=== PATIENT | female | born 1975 | race Caucasian/White ===

== ENCOUNTER 2016-09-25 02:54 | Emergency (ER) | payer OTHER ==
[~2016-09-25] VITALS: Ht 160 cm; Wt 77.1 kg
[2016-09-25] MEDS ORDERED: HYDR-2666 PO (04:22)
--- NOTE | 2016-09-25 04:23 | PHYS DOC ---
Past Medical History Past Medical History: UTI Additional Past Medical Histor: TRICH Past Surgical History: No Surgical History Alcohol Use: Sober Additional Information: PATIENT QUIT DRINKING ALOCHOL 24 HOURS AGO Drug Use: Methamphetamine Adult General Chief Complaint Chief Complaint: MECHANICAL FALL HPI HPI 40-year-old female presenting the emergency department with left lower rib pain after falling. Her pain is sharp mild intermittent happened about a day ago. She denies any head trauma neck pain or any other injuries. Review of Systems Review of Systems ROS negative for fevers chills abdominal pain nausea vomiting. Negative for loss of consciousness headache head pain head trauma or neck pain. All other review of systems is negative unless otherwise noted in history of present illness. Allergies Allergies Allergies Coded Allergies Type Severity Reaction Last Updated Verified No Known Drug Allergies 09/25/16 No Physical Exam Physical Exam Constitutional: Well developed, well nourished, no acute distress, non-toxic appearance. HENT: Normocephalic, atraumatic, bilateral external ears normal, oropharynx moist, no oral exudates, nose normal. [] Eyes: PERRLA, EOMI, conjunctiva normal, no discharge. Neck: Normal range of motion, no tenderness, supple, no stridor. Cardiovascular:Heart rate regular rhythm, no murmur . Mild pain of the right Lungs & Thorax: Bilateral breath sounds clear to auscultation [] Abdomen: Bowel sounds normal, soft, no tenderness, no masses, no pulsatile masses. Skin: Warm, dry, no erythema, no rash. [] Back: No tenderness, no CVA tenderness. Extremities: No tenderness, no cyanosis, no clubbing, ROM intact, no edema. Neurologic: Alert and oriented X 3, normal motor function, normal sensory function, no focal deficits noted. Psychologic: Affect normal, judgement normal, mood normal. [] Current Patient Data Vital Signs Vital Signs Date Time Temp Pulse Resp B/P Pulse Ox O2 Delivery O2 Flow Rate FiO2 09/25/16 04:35 89 137/82 98 Room Air 09/25/16 03:23 97.8 18 97.8 Lab Values Laboratory Tests Test 09/25/16 03:35 Urine Test Negative (NEG) EKG EKG [] Radiology/Procedures Radiology/Procedures Chest x-ray shows no evidence of rib fracture. No pneumothorax present. Course & Med Decision Making Course & Med Decision Making Pertinent Labs and Imaging studies reviewed. (See chart for details) 32-year-old female with left rib pain. Vital signs showed mild hypertension otherwise unremarkable. Physical exam unremarkable. Chest x-ray unremarkable. Patient was discharged home with oral pain medication to follow-up with her primary care physician. [place] Disclaimer Dragon Disclaimer This electronic medical record was generated, in whole or in part, using a voice recognition dictation system. Departure Departure Impression: Primary Impression: Rib contusion Disposition: HOME, SELF-CARE Condition: STABLE Referrals: NO PCP (PCP) MOON MARTÍNEZ MD Patient Instructions: Rib Contusion Additional Instructions: Thank you for allowing us to participate in your care today. Followup with your primary care physician in 3 days if your symptoms do not improve. If you do not have a primary care provider you can ask for a list of our primary care providers. Return to the emergency department you have any new or concerning findings. This should be evaluated by the primary care physician and any necessary consulting services for continued management within a few days after discharge. Return to emergency room if you have any new or concerning symptoms including but not limited to fever, chills, nausea, vomiting, intractable pain, any new rashes, chest pain, shortness of air, uncontrolled bleeding, difficulty breathing, and/or vision loss. You may have been prescribed medication that can change in your level of thinking and ability to operate machinery. These medications include hydrocodone and Ativan. Also, Benadryl has been known to do this as well. Be sure to check with your pharmacist and ask if the medications you've prescribed can affect your level of consciousness. I recommend not operating heavy machinery or driving while on medication such as these. Scripts Hydrocodone Bit/Acetaminophen (Hydrocodone-Apap 5-325 )1 Each Tablet1 Tab PO PRN Q6HRS PRN PAIN #15 TAB Be careful as this medication may cause you to be drowsy or tired. Do not drive on this medication. Prov:CHRIS VENEGAS MD 09/25/16 CHRIS VENEGAS MD Sep 25, 2016 04:23
[2016-09-25 04:35] VITALS: BP 137/82
[2016-09-25 05:45] LABS: NEG OBC UR NEG; POS OBC UR POS
--- NOTE | 2016-09-25 08:12 | RAD ---
Exam: PA chest and left rib radiographs History: Left rib pain after fall. Comparison: None. Findings: Cardiomediastinal silhouette is within normal limits for size. Bilateral lung mead are free of focal infiltrate. No pleural effusion is seen. Thin, horizontal linear artifact can be seen on all images. There is slight irregularity of the left anterolateral sixth rib, compatible with nondisplaced fracture, presumably acute. Impression: 1. No acute airspace disease identified. 2. Nondisplaced left sixth rib fracture.
== END 2016-09-25 04:35 | disposition home or self-care (01) ==
LOC: ER 02:54
DX: S20.211A Contusion of right front wall of thorax, initial encounter (principal); F15.90 Other stimulant use, unspecified, uncomplicated; Z87.440 Personal history of urinary (tract) infections; W19.XXXA Unspecified fall, initial encounter; Y93.89 Activity, other specified; Y99.8 Other external cause status; Y92.89 Other specified places as the place of occurrence of the external cause
CPT/HCPCS: 71101; 81025; 99285